=== PATIENT | male | born 1995 | race Two or more races ===

== ENCOUNTER 2025-05-25 14:15 | Emergency (ER) | payer BC ==
[~2025-05-25] VITALS: Ht 180.3 cm; Wt 74.8 kg
[2025-05-25 14:26] VITALS: TEMP 98.3
[2025-05-25] MEDS ORDERED: ALBUTEROL FS 2.5 MG/3 ML VIAL.NEB ONE (15:46)
[2025-05-25] MEDS ORDERED: IPRATROPIUM NEB FS 0.5 MG/2.5 ML AMPUL.NEB ONE (15:46)
[2025-05-25 15:51] VITALS: O2SAT 94
[2025-05-25] MEDS: IPRATROPIUM NEB FS 0.5 MG/2.5 ML AMPUL.NEB NEB ONE (15:51)
[2025-05-25] MEDS: ALBUTEROL FS 2.5 MG/3 ML VIAL.NEB NEB ONE (15:51)
[2025-05-25 15:56] VITALS: O2SAT 98
[2025-05-25] MEDS ORDERED: PSEU120T99 PO (16:11)
[2025-05-25] MEDS ORDERED: GUAI5SYR PO (16:11)
[2025-05-25] MEDS ORDERED: ALBU18HF2 INH (16:11)
[2025-05-25 16:31] VITALS: BP 110/77; O2SAT 98
== END 2025-05-25 16:32 | disposition home or self-care (01) ==
LOC: ER 14:25
DX: R05.9 Cough, unspecified (principal); R06.02 Shortness of breath; Z88.0 Allergy status to penicillin
CPT/HCPCS: 71045-TC